=== PATIENT | female | born 1970 ===

== ENCOUNTER 2021-11-06 21:19 | Inpatient (IN) | payer OTHER, SELFPAY ==
[~2021-11-06 21:19] MED LIST: Iopamidol-370 76% 500 ML 1 ML ONE
[2021-11-06] MEDS ORDERED: CEFAZOLIN 1 GM VIAL ONE (21:21)
[2021-11-06 21:40] LABS: #Basophils 0.1 thou/uL (0.0-0.2); #Eosinphils 0.6 thou/uL (0.0-0.7); #Lymphocytes 2.6 thou/uL (1.20-3.40); #Neutrophils 9.1 thou/uL (1.40-6.50); %Basophils 0.6 % (0.0-1.0); %Eosinophils 4.2 % (0.0-10.0); %Lymphocytes 19.3 % (21.0-51.0); %Monocytes 7.3 % (0.0-10.0); %Neutrophils 68.5 % (42.0-75.0); Hemoglobin 14.1 g/dL (12.0-16.0); Mean Corpuscular HGB CONC 34.3 g/dL (32.0-36.0); Mean Corpuscular Hemoglobin 30.2 pg (27.0-31.0); Mean Platelet Volume 7.1 fL (7.4-10.4); Platelet Count 431 thou/uL (130-400); RBC Distribution Width 12.3 % (11.5-14.5); Red Blood Cell (RBC) Count 4.68 mill/uL (4.20-5.40); White Blood Cell (WBC) Count 13.3 thou/uL (4.8-10.8)
[2021-11-06 21:48] LABS: Prothrombin Time 13.2 sec (12.0-14.7)
[2021-11-06 21:54] LABS: ALT (SGPT) 20 U/L (8-55); AST (SGOT) 17 U/L (5-34); Albumin 4.1 g/dL (3.5-5.0); Alkaline Phosphatase 70 U/L (40-110); Anion Gap 13 mmol/L (10-20); BUN (Urea Nitrogen) 9 mg/dL (7.0-18.7); Bilirubin, Total 0.5 mg/dL (0.2-1.2); Calc. Creatinine Clearance 0 mL/min (70-130); Calcium 9.1 mg/dL (7.8-10.44); Carbon Dioxide 25 mmol/L (22-29); Chloride 104 mmol/L (98-107); Estimated GFR 86; Globulin 3.6 g/dL (2.4-3.5); Glucose 109 mg/dL (70-105); Potassium 3.3 mmol/L (3.5-5.1); Protein, Total 7.7 g/dL (6.0-8.3); Sodium 139 mmol/L (136-145)
[2021-11-06 22:01] LABS: BHCG - Serum Negative (NEGATIVE); Pregs Control Background? CLEAR/WHITE (CLR/WHITE); Pregs Control Bar Appear? YES (CONTROL BAR)
[2021-11-06] MEDS ORDERED: Acetaminophen 500 MG TAB ONE (22:09)
[2021-11-06 22:27] LABS: Magnesium 1.9 mg/dL (1.6-2.6); Phosphorus 3.2 mg/dL (2.3-4.7)
[2021-11-06] MEDS ORDERED: Dextrose 5% in Water 1,000 ML IV PRN (22:37)
[2021-11-06] MEDS ORDERED: Ondansetron PF 4 MG/2 ML Vial IVP PRN (22:37)
[2021-11-06] MEDS ORDERED: hydrALAZINE 20 MG/ML VIAL SLOW IVP PRN (22:37)
[2021-11-06] MEDS ORDERED: Ondansetron ODT 4 MG TAB PO PRN (22:37)
[2021-11-06] MEDS ORDERED: Dextrose 50% Abboject 50 ML SYRINGE SLOW IVP PRN (22:37)
[2021-11-06] MEDS ORDERED: Acetaminophen 500 MG TAB PO PRN (22:42)
[2021-11-07] MEDS: Sodium Chloride 0.9% 1,000 ML IV SCH ×3 (00:21→17:48)
[2021-11-07] MEDS: Dexamethasone 4 MG in Sodium Chloride 0.9% 50 ML IVPB SCH ×3 (00:21→16:55)
[2021-11-07 00:39] LABS: SARS-CoV-2 NAA Rapid Test Not Detected (NotDetected)
[2021-11-07 00:45] VITALS: BMI 37.4
[2021-11-07] MEDS: Ketorolac Tromethamine 30 MG/ML VIAL IVP SCH ×3 (01:15→11:51)
[2021-11-07] MEDS ORDERED: Labetalol HCl 100 MG/20 ML VIAL SLOW IVP SCH (03:15)
[2021-11-07 04:06] LABS: #Lymphocytes 1.5 thou/uL (1.20-3.40); #Monocytes 0.4 thou/uL (0.11-0.59); #Neutrophils 16.6 thou/uL (1.40-6.50); %Eosinophils 0.2 % (0.0-10.0); %Lymphocytes 8.1 % (21.0-51.0); %Monocytes 2.3 % (0.0-10.0); %Neutrophils 89.3 % (42.0-75.0); Hemoglobin 13.7 g/dL (12.0-16.0); Mean Corpuscular HGB CONC 34.8 g/dL (32.0-36.0); Mean Corpuscular Hemoglobin 30.6 pg (27.0-31.0); Mean Corpuscular Volume 88.1 fL (78.0-98.0); Platelet Count 385 thou/uL (130-400); RBC Distribution Width 12.4 % (11.5-14.5); Red Blood Cell (RBC) Count 4.47 mill/uL (4.20-5.40); White Blood Cell (WBC) Count 18.6 thou/uL (4.8-10.8)
[2021-11-07 04:31] LABS: Anion Gap 14 mmol/L (10-20); BUN (Urea Nitrogen) 8 mg/dL (7.0-18.7); Calc. Creatinine Clearance 143 mL/min (70-130); Calcium 8.9 mg/dL (7.8-10.44); Carbon Dioxide 25 mmol/L (22-29); Chloride 104 mmol/L (98-107); Estimated GFR 95; Glucose 124 mg/dL (70-105); Magnesium 1.8 mg/dL (1.6-2.6); Phosphorus 3.1 mg/dL (2.3-4.7); Potassium 3.6 mmol/L (3.5-5.1); Sodium 139 mmol/L (136-145)
[2021-11-07] MEDS ORDERED: Morphine 4 MG/ML VIAL SLOW IVP PRN (07:36)
[2021-11-07] MEDS ORDERED: Potassium Phosphate 15 MMOL in Sodium Chloride 0.9% 250 ML 250 ML IVPB SCH (07:45)
[2021-11-07] MEDS ORDERED: Magnesium 2 GM/50 ML(in water) 2 GM in Premix Bag 1 BAG IVPB SCH (07:45)
[2021-11-07] MEDS: Famotidine/PF 20 mg/2ml Vial SLOW IVP SCH ×2 (08:35→21:22)
[2021-11-07] MEDS ORDERED: cloNIDine 0.1 MG TAB PO SCH (09:00)
[2021-11-07] MEDS: cloNIDine 0.1 MG TAB PO SCH ×2 (09:06→21:23)
[2021-11-07] MEDS: Ampicillin/Sulbactam 3 GM in Sodium Chloride 0.9% 100 ML IVPB SCH ×3 (09:06→20:40)
[2021-11-07] MEDS ORDERED: traMADol HCl 50 MG TAB PO PRN ×2 (09:43)
[2021-11-07] MEDS: Polyethylene Glycol 3350 17 GM Packet PO SCH (09:58)
[2021-11-07] MEDS: Acetaminophen 500 MG TAB PO SCH ×3 (09:58→21:22)
[2021-11-07] MEDS ORDERED: Dexamethasone 4 mg/ml Vial SLOW IVP SCH ×2 (16:00→23:00)
[2021-11-07] MEDS: Bacitracin 1 PK TOP SCH (21:23)
[2021-11-07] MEDS: Senokot S 8.6-50 MG TAB PO SCH (21:23)
[2021-11-07] MEDS: CEFAZOLIN 2 GM in Sodium Chloride 0.9% 100 ML IVPB SCH (22:44)
[2021-11-08] MEDS: Acetaminophen 500 MG TAB PO SCH ×4 (03:30→21:08)
[2021-11-08] MEDS: CEFAZOLIN 2 GM in Sodium Chloride 0.9% 100 ML IVPB SCH ×3 (05:30→21:46)
[2021-11-08 05:49] LABS: #Lymphocytes 1.2 thou/uL (1.20-3.40); #Monocytes 0.5 thou/uL (0.11-0.59); %Basophils 0.1 % (0.0-1.0); %Neutrophils 89.9 % (42.0-75.0); Hemoglobin 12.6 g/dL (12.0-16.0); Mean Corpuscular Hemoglobin 29.6 pg (27.0-31.0); Mean Corpuscular Volume 89.8 fL (78.0-98.0); Mean Platelet Volume 7.2 fL (7.4-10.4); Platelet Count 366 thou/uL (130-400); RBC Distribution Width 12.6 % (11.5-14.5); Red Blood Cell (RBC) Count 4.26 mill/uL (4.20-5.40); White Blood Cell (WBC) Count 17.8 thou/uL (4.8-10.8)
[2021-11-08 06:12] LABS: Anion Gap 11 mmol/L (10-20); BUN (Urea Nitrogen) 10 mg/dL (7.0-18.7); Calc. Creatinine Clearance 172 mL/min (70-130); Calcium 8.7 mg/dL (7.8-10.44); Carbon Dioxide 24 mmol/L (22-29); Chloride 106 mmol/L (98-107); Estimated GFR 108; Glucose 156 mg/dL (70-105); Magnesium 1.9 mg/dL (1.6-2.6); Phosphorus 3.2 mg/dL (2.3-4.7); Potassium 3.9 mmol/L (3.5-5.1); Sodium 137 mmol/L (136-145)
[2021-11-08] MEDS: Chlorhexidine Gluconate 15 ML UDCUP SSP SCH ×2 (08:53→21:07)
[2021-11-08] MEDS: Bacitracin 1 PK TOP SCH ×2 (08:53→21:09)
[2021-11-08] MEDS: cloNIDine 0.1 MG TAB PO SCH ×2 (08:54→21:09)
[2021-11-08] MEDS: Famotidine/PF 20 mg/2ml Vial SLOW IVP SCH ×2 (08:54→21:08)
[2021-11-08] MEDS: Polyethylene Glycol 3350 17 GM Packet PO SCH (10:02)
[2021-11-08] MEDS: Senokot S 8.6-50 MG TAB PO SCH ×2 (10:02→21:09)
[2021-11-08] MEDS ORDERED: TETANUS, DIPHTHERIA TOX,ADULT (TDVAX) 0.5 ML VIAL IM ONE (17:16)
[2021-11-09] MEDS: Acetaminophen 500 MG TAB PO SCH ×4 (04:00→21:45)
[2021-11-09 06:59] LABS: #Eosinphils 0.3 thou/uL (0.0-0.7); #Lymphocytes 4.5 thou/uL (1.20-3.40); #Monocytes 1.1 thou/uL (0.11-0.59); #Neutrophils 7.1 thou/uL (1.40-6.50); %Basophils 0.3 % (0.0-1.0); %Eosinophils 2.4 % (0.0-10.0); %Lymphocytes 34.4 % (21.0-51.0); %Monocytes 8.1 % (0.0-10.0); %Neutrophils 54.7 % (42.0-75.0); Hemoglobin 11.3 g/dL (12.0-16.0); Mean Corpuscular HGB CONC 33.1 g/dL (32.0-36.0); Mean Corpuscular Hemoglobin 30.1 pg (27.0-31.0); Mean Corpuscular Volume 90.8 fL (78.0-98.0); Platelet Count 326 thou/uL (130-400); RBC Distribution Width 12.5 % (11.5-14.5); Red Blood Cell (RBC) Count 3.76 mill/uL (4.20-5.40)
[2021-11-09] MEDS: CEFAZOLIN 2 GM in Sodium Chloride 0.9% 100 ML IVPB SCH ×3 (07:29→21:40)
[2021-11-09] MEDS: cloNIDine 0.1 MG TAB PO SCH ×2 (09:38→21:39)
[2021-11-09] MEDS: Famotidine/PF 20 mg/2ml Vial SLOW IVP SCH ×2 (09:39→21:39)
[2021-11-09] MEDS: Chlorhexidine Gluconate 15 ML UDCUP SSP SCH ×2 (09:42→21:39)
[2021-11-09] MEDS: Bacitracin 1 PK TOP SCH ×2 (09:56→21:39)
[2021-11-09] MEDS: Senokot S 8.6-50 MG TAB PO SCH ×2 (10:11→21:40)
[2021-11-09] MEDS: Polyethylene Glycol 3350 17 GM Packet PO SCH (10:11)
[2021-11-09] MEDS ORDERED: Famotidine/PF 20 mg/2ml Vial ONE (11:53)
[2021-11-09] MEDS ORDERED: SUGAMMADEX SODIUM 200 MG/2 ML VIAL ONE (11:53)
[2021-11-09] MEDS ORDERED: Chlorhexidine Gluconate 15 ML UDCUP SSP ONE (11:59)
[2021-11-09] MEDS ORDERED: Hydrocortisone 1% Cream 30 GM TUBE ONE (11:59)
[2021-11-09] MEDS ORDERED: Xylocaine 1% w/ Epi 1:100K 10 ML VIAL ONE (11:59)
[2021-11-09] MEDS ORDERED: CEFAZOLIN 2 GM VIAL ONE (12:17)
[2021-11-09] MEDS ORDERED: Sodium Chloride 0.9% 0 ML ONE (12:17)
[2021-11-09] MEDS ORDERED: Oxymetazoline HCl 0.05% (30 ML BOT) ONE (12:23)
[2021-11-09] MEDS ORDERED: Midazolam HCl 2 mg/ml Syrup 5 ml UD Cup ONE (12:24)
[2021-11-09] MEDS ORDERED: Midazolam HCl 2 mg/2 ml Vial ONE (12:25)
[2021-11-09] MEDS ORDERED: PROPOFOL 200 MG/20 ML VIAL ONE (12:28)
[2021-11-09] MEDS ORDERED: Dexamethasone 20 MG/5 ML VIAL ONE (12:28)
[2021-11-09] MEDS ORDERED: Rocuronium Bromide 10 MG/ML (10ML VIAL) ONE (12:28)
[2021-11-09] MEDS ORDERED: Lidocaine 1% PF 5 ML VIAL ONE (12:28)
[2021-11-09] MEDS ORDERED: Ondansetron PF 4 MG/2 ML Vial ONE (12:28)
[2021-11-09] MEDS ORDERED: Lidocaine 2% 6 ML SYR ONE (12:33)
[2021-11-09] MEDS ORDERED: fentaNYL Citrate/PF 100 MCG/2 ML SYRINGE ONE (12:37)
[2021-11-09] MEDS ORDERED: Promethazine HCl 25 MG/ML VIAL IVPB PRN (13:12)
[2021-11-09] MEDS ORDERED: Promethazine HCl 25 MG/ML VIAL IM PRN (13:12)
[2021-11-09] MEDS ORDERED: HYDROmorphone 2 MG/ML VIAL SLOW IVP PRN (13:12)
[2021-11-09] MEDS ORDERED: Meperidine HCl/PF 25 MG/ML VIAL SLOW IVP PRN (13:12)
[2021-11-09] MEDS ORDERED: Dexmedetomidine 200 MCG/2 ML VIAL ONE (13:22)
[2021-11-09] MEDS ORDERED: Bacitracin Zinc Ointment 30 gm TUBE ONE (13:24)
[2021-11-09] MEDS ORDERED: HYDROcodone/Acetaminophen 5/325 mg Tablet PO PRN (14:29)
[2021-11-09] MEDS ORDERED: Ibuprofen 800 MG TAB PO PRN (14:32)
[2021-11-09] MEDS ORDERED: traMADol HCl 50 MG TAB PO PRN (15:35)
[2021-11-09] MEDS: Ibuprofen 200 MG TAB PO SCH (16:16)
[2021-11-09] MEDS: traMADol HCl 50 MG TAB PO SCH (17:04)
[2021-11-10] MEDS: traMADol HCl 50 MG TAB PO SCH ×4 (03:00→17:39)
[2021-11-10] MEDS: Ibuprofen 200 MG TAB PO SCH ×4 (03:00→17:48)
[2021-11-10] MEDS: Acetaminophen 500 MG TAB PO SCH ×3 (03:01→16:00)
[2021-11-10] MEDS: CEFAZOLIN 2 GM in Sodium Chloride 0.9% 100 ML IVPB SCH ×2 (05:50→13:50)
[2021-11-10] MEDS: Senokot S 8.6-50 MG TAB PO SCH (08:23)
[2021-11-10] MEDS: Chlorhexidine Gluconate 15 ML UDCUP SSP SCH (08:23)
[2021-11-10] MEDS: Polyethylene Glycol 3350 17 GM Packet PO SCH (08:23)
[2021-11-10] MEDS: cloNIDine 0.1 MG TAB PO SCH (08:23)
[2021-11-10] MEDS: Bacitracin 1 PK TOP SCH (08:23)
[2021-11-10] MEDS: Famotidine/PF 20 mg/2ml Vial SLOW IVP SCH (08:24)
[2021-11-10 15:13] VITALS: BP 130/75; TEMP 98.3
== END 2021-11-10 18:40 | disposition home or self-care (01) | DRG 159 ==
LOC: ERS 21:19 → CCU 22:41 → SURG A 11-07 14:10
PROVIDERS: ADMIT Surgery; ATTEND Surgery
PROC: 0CTW0Z0 Resection of Upper Tooth, Single, Open Approach (ICD-10-PCS; principal; 2021-11-06)
PROC: 0HB1XZZ Excision of Face Skin, External Approach (ICD-10-PCS; 2021-11-06)
DX: S02.5XXB Fracture of tooth (traumatic), initial encounter for open fracture (principal); Z20.822 Contact with and (suspected) exposure to COVID-19; Z23 Encounter for immunization; I10 Essential (primary) hypertension; F43.10 Post-traumatic stress disorder, unspecified; F31.9 Bipolar disorder, unspecified; W34.09XA Accidental discharge from other specified firearms, initial encounter; Z88.5 Allergy status to narcotic agent; Z79.899 Other long term (current) drug therapy
CPT/HCPCS: 36415; 70450; 70486; 70498; 80048; 80053; 83605; 83735; 84100; 84703; 85025; 85610; 85730; 86850; 86900; 86901; 90714; 96374; G0390; J0295; J0690; J1100; J1885; J2250; J2270; J2405; J2704; J3475; J3490; J7050; Q9967; S0028; U0002